=== PATIENT | female | born 1985 | race Caucasian/White ===

== ENCOUNTER 2017-02-22 18:18 | Emergency (ER) | payer OTHER ==
[~2017-02-22] VITALS: Ht 157.5 cm; Wt 91.0 kg
[2017-02-22 18:21] VITALS: Ht 157.5 cm; Wt 91.0 kg
[2017-02-22] MEDS ORDERED: SOD CHLORIDE 0.9% 1,000 ML IV STA (18:33)
[2017-02-22] MEDS ORDERED: morphine 4 MG/ML VIAL IV STA (18:33)
[2017-02-22] MEDS ORDERED: ONDANSETRON 4 MG INJ IV STA (18:33)
[2017-02-22] MEDS ORDERED: ACETAMINOPHEN 500 MG TAB PO STA (18:33)
[2017-02-22 19:45] LABS: BASOPHILS % 0.3 % (0.0-2.0); EOSINOPHILS # 0.1 10^3/ul (0.0-0.5); EOSINOPHILS % 0.6 % (0.0-7.0); HEMATOCRIT 39.5 % (37.0-47.0); HEMOGLOBIN 12.8 g/dl (12.0-16.0); LYMPHOCYTES # 1.4 10^3/ul (0.8-2.9); LYMPHOCYTES % 12.4 % (15.0-51.0); MEAN CORPUSCULAR HEMOGLOBIN 29.6 pg (29.0-33.0); MEAN CORPUSCULAR HGB CONC 32.4 g/dl (32.0-37.0); MEAN CORPUSCULAR VOLUME 91.4 fl (82.0-101.0); MEAN PLATELET VOLUME 9.7 fl (7.4-10.4); MONOCYTE # 0.5 10^3/ul (0.3-0.9); MONOCYTES % 4.8 % (0.0-11.0); NEUTROPHIL # 9.1 10^3/ul (1.6-7.5); NEUTROPHILS % 81.5 % (39.0-77.0); PLATELET COUNT 382 10^3/UL (140-415); RED BLOOD COUNT 4.32 10^6/ul (4.20-5.40); RED CELL DISTRIBUTION WIDTH 13.2 % (11.5-14.5); WHITE BLOOD COUNT 11.1 10^3/ul (4.8-10.8)
[2017-02-22 19:46] LABS: ADD UMIC NO; UR ASCORBIC ACID NEGATIVE (NEGATIVE); UR BILIRUBIN (Dip) NEGATIVE (NEGATIVE); UR BLOOD (Dip) NEGATIVE (NEGATIVE); UR CLARITY CLEAR (CLEAR); UR COLOR STRAW (YELLOW); UR GLUCOSE (Dip) NEGATIVE (NEGATIVE); UR KETONES (Dip) NEGATIVE (NEGATIVE); UR LEUKOCYTE ESTERASE (Dip) NEGATIVE Leu/ul (NEGATIVE); UR NITRITE (Dip) NEGATIVE (NEGATIVE); UR TOTAL PROTEIN (Dip) NEGATIVE (NEGATIVE); UR UROBILINOGEN (Dip) NEGATIVE (NEGATIVE)
[2017-02-22 20:06] LABS: ALBUMIN/GLOBULIN RATIO 0.9; BILIRUBIN,INDIRECT 0.1 mg/dl (0-1.1); BILIRUBIN,TOTAL 0.1 mg/dl (0.2-1.3); CREATININE 0.86 mg/dl (0.44-1.00); POTASSIUM 3.8 mmol/L (3.5-5.1); TOTAL PROTEIN 8.4 g/dl (6.1-8.1)
--- NOTE | 2017-02-22 20:22 | RADRPT ---
PROCEDURE: CT ABDOMEN AND PELVIS WITHOUT CONTRAST CLINICAL INDICATION: 31 years of age, female . Abdominal pain. COMPARISON: CT abdomen pelvis November 15, 2013 TECHNIQUE: CT of the abdomen and pelvis was performed without intravenous contrast. Oral contrast wa s not administered prior to the examination. Coronal and sagittal reformatted images were obtained from the axial source images. Images were revi ewed on a high-resolution PACS workstation. Dose information: Based on a 32 cm phantom, the estimated radiation dose (CTDIvol mGy) for each seri es in this exam is 22. The estimated cumulative dose (DLP mGy-cm) is 1287. One or more of the following dose reduction techniques were used: - Automated exposure control. - Adjustment of the mA and/or kV according to patient size. - Use of iterative reconstruction technique. FINDINGS: In the absence of intravenous contrast, the study constitutes a limited assessment of the solid orga ns, bowel and vessels. LUNG BASES: There are trace bilateral pleural effusions. There is a benign-appearing calcification i n the left pleural space that is unchanged from November 15, 2013. ABDOMEN/PELVIS: Liver: Normal noncontrast appearance. Gallbladder: Normal noncontrast appearance. Bile ducts: No intrahepatic or extrahepatic biliary duct dilatation. Spleen: Normal noncontrast appearance. Pancreas: Normal noncontrast appearance. Adrenal glands: Normal noncontrast appearance. Kidneys and ureters: There is a 0.2 cm nonobstructing calculus in the superior pole of the left kidn ey. Kidneys are normal size without hydronephrosis. Negative for ureteral calculi. Aorta and IVC: Normal noncontrast appearance. Lymph nodes: Normal noncontrast appearance. Gastrointestinal tract: Normal noncontrast appearance. Appendix: Normal Bladder: Normal noncontrast appearance. Pelvic Organs: The uterus and adnexa are unremarkable. Peritoneal cavity: No free fluid or free intraperitoneal air. Abdominal wall: Normal noncontrast appearance. 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 No suspicious bone lesions. IMPRESSION: 1. Trace of bilateral pleural effusions with a benign calcification in the left pleural space that is unchanged from November 15, 2013. 2. 0.2 cm nonobstructing calculus left kidney. RPTAT: HCTS Guru Flores, Physician Date Time Electronically viewed and signed by Guru Flores, Physician on 02/22/2017 20:22 /
[2017-02-22] MEDS ORDERED: HYDR-902 PO (20:30)
[2017-02-22] MEDS ORDERED: ACYC800T57 PO (20:30)
--- NOTE | 2017-02-22 20:35 | ERD ---
ER Documentation Chief Complaint Date/Time DATE: 02/22/17 TIME: 20:31 Chief Complaint Complains of severe back pain x 2 days HPI Patient is a 31-year-old female who presents with severe back pain that she has had for 2 days. She denies any trauma. She admits to some nausea but no vomiting or diarrhea. She has also had a fever she took Motrin earlier today. She denies any urinary symptoms. She does admit to a painful rash on her back. No bowel or bladder incontinence. No saddle anesthesia. ROS All systems reviewed and are negative except as per history of present illness. Medications Home Meds Active Scripts Hydrocodone/Acetaminophen (Gowen 10-325 Tablet) 1 Each Tablet, 1 TAB PO Q6H Y for PAIN, #20 TAB Prov:PAXTON VILLASENOR PA-C 02/22/17 Acyclovir* (Zovirax*) 800 Mg Tablet, 800 MG PO 5 TIMES DAILY for 7 Days, TAB Prov:PAXTON VILLASENOR PA-C 02/22/17 Allergies Allergies: Coded Allergies: No Known Allergies (Verified Allergy, Mild, 07/02/09) PMhx/Soc History of Surgery: Yes (c/section) Hx Neurological Disorder: No Hx Respiratory Disorders: No Hx Cardiac Disorders: No Hx Psychiatric Problems: No Hx Miscellaneous Medical Probl: No Hx Alcohol Use: No Hx Substance Use: No Hx Tobacco Use: No Smoking Status: Never smoker FmHx Family History: No diabetes Physical Exam Vitals Vital Signs Date Time Temp Pulse Resp B/P Pulse Ox O2 Delivery O2 Flow Rate FiO2 02/22/17 18:55 101.6 02/22/17 18:21 102.0 118 20 147/94 98 Physical Exam INITIAL VITAL SIGNS: Reviewed by me GENERAL: Awake, alert and oriented x 4, well appearing, nontoxic, speaking in full sentences. No acute distress HEAD: Atraumatic NECK: Supple. No masses. Full range of motion. No meningismus. No midline tenderness. RESPIRATORY: Clear to auscultation bilaterally. Symmetric chest wall rise. No wheezing or rales. No accessory muscle use. CV: Regular rate and rhythm. No murmurs, rubs, or gallops. ABDOMEN: Soft, non-distended. Nontender. Negative [place]. Negative McBurneys point tenderness. No CVA tenderness bilaterally. No guarding. No rebound. EXTREMITIES: No clubbing or cyanosis. No edema. Moving all extremities normally. BACK: No midline tenderness to palpation. No step-offs. SKIN: Shingles on her right middle thoracic spine wrapping around to her front anterior chest wall approximately T4-T5 Result Diagram: 02/22/17190902/22/171909 Results 24 hrs Laboratory Tests Test 02/22/17 19:10 White Blood Count 11.110^3/ul Red Blood Count 4.3210^6/ul Hemoglobin 12.8g/dl Hematocrit 39.5% Mean Corpuscular Volume 91.4fl Mean Corpuscular Hemoglobin 29.6pg Mean Corpuscular Hemoglobin Concent 32.4g/dl Red Cell Distribution Width 13.2% Platelet Count 88052^3/UL Mean Platelet Volume 9.7fl Neutrophils % 81.5% Lymphocytes % 12.4% Monocytes % 4.8% Eosinophils % 0.6% Basophils % 0.3% Nucleated Red Blood Cells % 0.0/100WBC Neutrophils # 9.110^3/ul Lymphocytes # 1.410^3/ul Monocytes # 0.510^3/ul Eosinophils # 0.110^3/ul Basophils # 0.010^3/ul Nucleated Red Blood Cells # 0.010^3/ul Urine Color STRAW Urine Clarity CLEAR Urine pH 9.0 Urine Specific [place] 1.010 Urine Ketones NEGATIVEmg/dL Urine Nitrite NEGATIVEmg/dL Urine Bilirubin NEGATIVEmg/dL Urine Urobilinogen NEGATIVEmg/dL Urine Leukocyte Esterase NEGATIVELeu/ul Urine Hemoglobin NEGATIVEmg/dL Urine Glucose NEGATIVEmg/dL Urine Total Protein NEGATIVEmg/dl Sodium Level 138mmol/L Potassium Level 3.8mmol/L Chloride Level 106mmol/L Carbon Dioxide Level 22mmol/L Anion Gap 14 Blood Urea Nitrogen 10mg/dl Creatinine 0.86mg/dl Glucose Level 94mg/dl Lactic Acid Level 1.3mmol/L Calcium Level 9.0mg/dl Total Bilirubin 0.1mg/dl Direct Bilirubin 0.00mg/dl Indirect Bilirubin 0.1mg/dl Aspartate Amino Transf (AST/SGOT) 22IU/L Alanine Aminotransferase (ALT/SGPT) 33IU/L Alkaline Phosphatase 115IU/L Total Protein 8.4g/dl Albumin 4.0g/dl Globulin 4.40g/dl Albumin/Globulin Ratio 0.90 Lipase 89U/L Current Medications Medications (Trade) Dose Ordered Sig/Neda Route PRN Reason Start Time Stop Time Status Last Admin Dose Admin Sodium Chloride (NS) 1,000 ml @ 1,000 mls/hr Q1H STAT IV 02/22/17 18:33 02/22/17 19:32 DC 02/22/17 19:09 Morphine Sulfate (morphine) 4 mg ONCE STAT IV 02/22/17 18:33 02/22/17 18:34 DC 02/22/17 19:08 Ondansetron HCl (Zofran Inj) 4 mg ONCE STAT IV 02/22/17 18:33 02/22/17 18:34 DC 02/22/17 19:08 Acetaminophen (Tylenol Tab) 1,000 mg ONCE STAT PO 02/22/17 18:33 02/22/17 18:34 DC 02/22/17 19:08 Procedures/MDM History presents with back pain and fever. She was given Tylenol. The differential diagnosis includes but is not limited to muscle strain, ligament strain, contusion, arthritis, discogenetic disease, non-musculoskeletal, cauda equina syndrome, cord compression, abscess, appendicitis, cholelithiasis, cholecystitis, pancreatitis, hepatitis, gastritis, peptic ulcer disease, bowel obstruction, diverticulitis, renal disease including stones, torsion, AAA, pyelonephritis, and others. Her blood work and CT scan is unremarkable. Patient does have evidence of shingles on examination which is most likely the cause. Both myself and Dr. Bobo examined the patient we agree. She is discharged with a single banner and Gowen for pain control. Patient counseled regarding my diagnostic impression and care plan. Prior to discharge all questions answered. Pt agrees with treatment plan and understands strict return precautions. Pt is instructed to follow up with primary care provider within 24- 48 hours. Precautionary instructions provided including instructions to return to the ER if not improving or for any worsening or changing symptoms or concerns. Departure Diagnosis: Primary Impression: Shingles Condition: Stable Patient Instructions: Shingles (Herpes Zoster) Additional Instructions: Call your primary care doctor TOMORROW for an appointment during the next 1-2 days.See the doctor sooner or return here if your condition worsens before your appointment time. PAXTON VILLASENOR PA-C Feb 22, 2017 20:35
[2017-02-22 20:37] VITALS: TEMP 99
== END 2017-02-22 20:38 | disposition home or self-care (01) ==
LOC: FTE 18:18
DX: B02.9 Zoster without complications (principal); R11.0 Nausea
CPT/HCPCS: 36415; 74176; 80053; 81003; 83605; 83690; 85025; 87040; 96374; 96375; J2270; J2405; J7030; Z7502; Z7610

== ENCOUNTER 2018-03-11 03:10 | Emergency (ER) | END 2018-03-11 05:01 | disposition home or self-care (01) ==

== ENCOUNTER 2018-07-17 10:00 | Emergency (ER) | payer SELFPAY ==
[~2018-07-17] VITALS: Ht 154.9 cm; Wt 77.7 kg
[~2018-07-17 10:00] MED LIST: ACYC800T5 PO; HYDR-3980 PO; IBUP800T48 PO
[2018-07-17 10:03] VITALS: BP 121/71; Ht 154.9 cm; Wt 77.7 kg
[2018-07-17] MEDS ORDERED: KETOROLAC 60 MG INJ IM STA (12:39)
[2018-07-17] MEDS ORDERED: IBUP-1561 PO (14:08)
[2018-07-17] MEDS ORDERED: ALBU18HF INHALATION (14:11)
[2018-07-17 14:21] VITALS: PULSE 80; RESP 18
--- NOTE | 2018-07-17 15:03 | ERD ---
ER Documentation Chief Complaint Chief Complaint CP X 1 WEEK. NO CARDIAC HX. HPI 33-year-old female patient with no significant past medical history presents to ED complaining of chest pain that started 1 week ago. States that when she presses onto her chest, it hurts more. States that she is also had a headache o n top of her head. Patient rates her pain an 8 out of 10. States her last menstruation was on July 10, 2018. Denies any head or neck injuries denies any chest injuries. Denies any family history of cardiopulmonary disease. Denies any fever, chills, cough, rhinorrhea, wheezing, shortness of breath, abdominal pain. ROS All systems reviewed and are negative except as per history of present illness. Medications Home Meds Active Scripts Albuterol Sulfate* (Ventolin HFA*) 18 Gm Hfa.aer.ad, 2 PUFF INHALATION Q4H, #1 INHALER Prov:JOSE C PUENTES PA-C 07/17/18 Ibuprofen* (Motrin*) 400 Mg Tab, 400 MG PO Q6, #30 TAB Prov:JOSE C PUENTES PA-C 07/17/18 Ibuprofen* (Motrin*) 800 Mg Tab, 800 MG PO Q6H PRN for PAIN AND OR ELEVATED TEMP, #30 TAB Prov:ORI MORALES MD 03/11/18 Hydrocodone/Acetaminophen ([place] 10-325 Tablet) 1 Each Tablet, 1 TAB PO Q6H PRN for PAIN, #20 TAB Prov:PAXTON VILLASENOR PA-C 02/22/17 Acyclovir* (Zovirax*) 800 Mg Tablet, 800 MG PO 5 TIMES DAILY for 7 Days, TAB Prov:PAXTON VILLASENOR PA-C 02/22/17 Allergies Allergies: Coded Allergies: sulfamethoxazole (Verified Allergy, Unknown, 03/11/18) trimethoprim (Verified Allergy, Unknown, 03/11/18) PMhx/Soc History of Surgery: Yes ( x 2) Hx Neurological Disorder: No Hx Respiratory Disorders: No Hx Cardiac Disorders: No Hx Psychiatric Problems: No Hx Miscellaneous Medical Probl: No Hx Alcohol Use: No Hx Substance Use: No Hx Tobacco Use: No Smoking Status: Never smoker FmHx Family History: No diabetes, No coronary disease Physical Exam Vitals Vital Signs Date Temp Pulse Resp B/P (MAP) Pulse Ox O2 O2 Flow FiO2 Time Delivery Rate 07/17/18 98.0 80 18 100 Room Air 14:21 07/17/18 97.9 100 17 121/71 99 10:03 (88) Physical Exam Const: Uod-ppv-rqwzwlpyn, well-nourished. In no acute distress. Head: Atraumatic, normocephalic Eyes: Normal Conjunctiva without injection. No purulent discharge. PERRL. EOMI ENT: Normal external ear. Ear canal without erythema. Tympanic membrane pearly peralta without effusion or bulging. Nasal canal clear with normal turbinates. Moist oropharynx without tonsillar exudates. Non-erythematous pharynx. Uvula midline. No drooling. No trismus. Neck: Full range of motion. No meningismus. No cervical lymphadenopathy. Resp: Clear to auscultation bilaterally. No wheezing, rhonchi, rales, or crackles. No accessory muscle use. No retractions. Cardio: Regular rate and rhythm. No murmurs, rubs or gallops. Chest: Tender to palpation of the anterior chest. Pain is reproducible. Abd: Soft, non tender, non distended. Normal bowel sounds. No palpable masses. No rebound tenderness. No guarding. Skin: No petechiae or rashes Back: No midline tenderness. No CVA tenderness. Ext: No cyanosis, or edema. Neur: Awake and alert. Psych: Normal Mood and Affect Results 24 hrs Laboratory Tests Test 07/17/18 13:10 07/17/18 13:12 Bedside Urine pH (LAB) 8.0 Bedside Urine Protein (LAB) Negative Bedside Urine Glucose (UA) Negative Bedside Urine Ketones (LAB) Negative Bedside Urine Blood Negative Bedside Urine Nitrite (LAB) Negative Bedside Urine Leukocyte Esterase (L Negative POC Beta HCG, Qualitative NEGATIVE Current Medications Medications Dose Sig/Neda Start Time Status Last (Trade) Ordered Route PRN Stop Time Admin Dose Reason Admin Ketorolac 60 mg ONCE STAT 07/17/18 DC 07/17/18 Tromethamine IM 12:39 07/17/18 13:11 (Toradol) 12:42 Procedures/MDM 33-year-old female patient with no significant past medical history presents to ED complaining of chest pain that started 1 week ago and a headache that started yesterday. Patient is afebrile and nontoxic-appearing. EKG, chest x-ray was ordered to further evaluate patient. Urine negative. Patient was given Toradol 60 mg IM with improvement of her symptoms. EKG reviewed and interpreted by Dr. Carrera Rate/Rhythm: [78 bpm, Normal Sinus Rhythm] No ectopy, no ST elevations, normal axis. QRS, ST, T-waves: [No changes consistent w/ acute ischemia] Impression: [No evidence of ischemia or arrhythmia] Patient's chest pain is reproducible with palpation therefore likely musc uloskeletal. Differentials are likely secondary to costochondritis. Low suspicion for acute myocardial infarction, pneumothorax, pneumonia, cardiac tamponade, Jnqby-Nhfxupsxv-Kwarc Syndrome, Brugada Syndrome, pulmonary embolism, AAA, aortic dissection, thoracic aortic dissection, endocarditis, myocarditis, pericarditis, cocaine-related ischemia, Boerhaave's syndrome, cardiac dysr hythmias,meningitis, intracranial bleed, seizure, stroke, TIA or other emergent conditions. Diagnosis: Chest wall pain, Headache Discharge medications: Ibuprofen, Ventolin Follow up with primary care physician in 1-2 days. Instructed patient to return to the ED sooner for any worsening symptoms. Patient's questions were answered. Patient is hemodynamically stable. Patient understood and agreed with discharge plan. Patient discharged stable. Disclaimer: Inadvertent spelling and grammatical errors are likely due to EHR/dictation software use and do not reflect on the overall quality of patient care. Also, please note that the electronic time recorded on this note does not necessarily reflect the actual time of the patient encounter. Departure Diagnosis: Primary Impression: Chest wall pain Additional Impression: Headache Headache type: unspecified Headache chronicity pattern: unspecified pattern Intractability: not intractable Qualified Codes: R51 - Headache Condition: Stable Patient Instructions: Coping with Shortness of Breath: Controlling Stress, Stress Relief: Relaxation, Chest Wall Pain, Costochondritis, Headache, Unspecified Referrals: COMMUNITY CLINICS YOU HAVE RECEIVED A MEDICAL SCREENING EXAM AND THE RESULTS INDICATE THAT YOU DO NOT HAVE A CONDITION THAT REQUIRES URGENT TREATMENT IN THE EMERGENCY DEPARTMENT. FURTHER EVALUATION AND TREATMENT OF YOUR CONDITION CAN WAIT UNTIL YOU ARE SEEN IN YOUR DOCTORS OFFICE WITHIN THE NEXT 1-2 DAYS. IT IS YOUR RESPONSIBILITY TO MAKE AN APPOINTMENT FOR FOLOW-UP CARE. IF YOU HAVE A PRIMARY DOCTOR --you should call your primary doctor and schedule an appointment IF YOU DO NOT HAVE A PRIMARY DOCTOR YOU CAN CALL OUR PHYSICIAN REFERRAL HOTLINE AT IF YOU CAN NOT AFFORD TO SEE A PHYSICIAN YOU CAN CHOSE FROM THE FOLLOWING [facility] [address] [facility] [address] [facility] [address] [facility] [address] [facility] [address] [facility]. [facility] [address] [facility]. [facility] YOU HAVE RECEIVED A MEDICAL SCREENING EXAM AND THE RESULTS INDICATE THAT YOU DO NOT HAVE A CONDITION THAT REQUIRES URGENT TREATMENT IN THE EMERGENCY DEPARTMENT. FURTHER EVALUATION AND TREATMENT OF YOUR CONDITION CAN WAIT UNTIL YOU ARE SEEN IN YOUR DOCTORS OFFICE WITHIN THE NEXT 1-2 DAYS. IT IS YOUR RESPONSIBILITY TO MAKE AN APPOINTMENT FOR FOLOW-UP CARE. IF YOU HAVE A PRIMARY DOCTOR --you should call your primary doctor and schedule and appointment IF YOU DO NOT HAVE A PRIMARY DOCTOR YOU CAN CALL OUR PHYSICIAN REFERRAL HOTLINE AT . IF YOU CAN NOT AFFORD TO SEE A PHYSICIAN YOU CAN CHOSE FROM THE FOLLOWING [facility]: [facility] [address] [place] [address] [facility] [address] [place] [address] [facility] [address] [place] [address] [facility] URGENT CARE/SPECIALTIES Additional Instructions: Call your primary care doctor TOMORROW for an appointment during the next 2-3 days.See the doctor sooner or return here if your condition worsens before your appointment time. JOSE C PUENTES PA-C Jul 17, 2018 15:03
== END 2018-07-17 14:22 | disposition home or self-care (01) ==
LOC: FTE 10:00
DX: R07.89 Other chest pain (principal); R51 Headache
CPT/HCPCS: 71045; 81003; 81025; 96372; 99284; J1885

== ENCOUNTER 2018-11-04 11:41 | Emergency (ER) | payer OTHER ==
[~2018-11-04] VITALS: Ht 160 cm; Wt 79.2 kg
[~2018-11-04 11:41] MED LIST changes: +ALBU18HF INHALATION; +IBUP-1561 PO
[2018-11-04 11:45] VITALS: BP 118/76; PULSE 80; RESP 18; Ht 160 cm; Wt 79.2 kg
[2018-11-04] MEDS ORDERED: ACETAMINOPHEN 325 MG TAB PO ONE (13:30)
[2018-11-04] MEDS ORDERED: NAPR-985 PO (14:54)
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
== END 2018-11-04 15:28 | disposition home or self-care (01) ==
LOC: FTE 11:41
DX: S09.90XA Unspecified injury of head, initial encounter (principal); R51 Headache; W20.8XXA Other cause of strike by thrown, projected or falling object, initial encounter; Y92.9 Unspecified place or not applicable
CPT/HCPCS: 70450; Z7502; Z7610